=== PATIENT | male | born 1960 | race Caucasian/White ===

== ENCOUNTER 2024-03-28 11:06 | Inpatient (IN) | payer MEDICARE, SELFPAY ==
--- NOTE | 2024-03-16 08:51 | CM ---
Addendum entered by Shante Foreman 03/21/24 08:48:
Spoke again with patient. He now states his friend, Roseline, will stay with him one night.
Addendum entered by Shante Foreman 03/18/24 11:13:
Spoke again with patient. He now states that his friend, Isabella, will stay with him after surgery.
Original Note:
Patient is scheduled for an elective R THR on 03/28/24. Spoke with patient prior to surgery via telephone. Patient had a L THR and B TKR (both in 2012) at . Reintroduced role of Orthopedic Navigator. Patient reports that he lives alone in a one
story home. There are 13 steps to enter. He currently functions independently and uses lofstran crutches. He also has a rolling walker, cane, hip kit, raised toilet seat and firm cushion. He has never had VN services. PCP is Jermaine Whalen.
Discussed orthopedic program and post surgical plans. Reviewed anticipated length of stay and that goal is for him to return home at discharge. Also reviewed outpatient PT. Patient is in agreement with tentative plan and will go directly to
outpatient PT at [facility]. He states that he will have support from his friend/neighbors but no one will stay with him.
Patient will complete online education.
Plan: Orthopedic Navigator will remain available to assist with the care of patient and will reassess discharge needs after surgery.
[2024-03-22 06:45] VITALS: BMI 37.6
[2024-03-22 10:01] LABS: Hematocrit 41.3 % (39.0-52.0); Hemoglobin 14.3 g/dL (13.0-18.0); Mean Corp Hgb Conc. 34.6 g/dL (33.0-37.0); Mean Corpuscular Hgb 29.8 pg (27.0-31.0); Mean Platelet Volume 9.7 fL (7.4-10.4); Platelet Count 294 10^3/uL (130-400); Red Cell Dist. Width 12.7 % (11.5-14.5); White Blood Cell Count 6.4 10^3/uL (4.8-10.8)
[2024-03-22 10:21] LABS: ALT (SGPT) 19 U/L (0-50); AST (SGOT) 23 U/L (17-59); Albumin 4.8 g/dl (3.5-5.0); Alkaline Phosphatase 64 U/L (38-126); Blood Urea Nitrogen 16 mg/dl (9-20); Calcium 9.8 mg/dl (8.4-10.2); Carbon Dioxide 28 mmol/L (22-30); Chloride 100 mmol/L (98-107); Estimated Creatinine Clearance 109 ml/min; Glucose 90 mg/dl (70-99); Potassium 3.7 mmol/L (3.5-5.1); Sodium 140 mmol/L (135-145); Total Protein 7.4 g/dl (6.3-8.2); eGFR > 60.00
[2024-03-22 11:54] LABS: Glycohemoglobin (HgbA1c) 5.5 % (4.0-5.6)
[2024-03-22 14:39] VITALS: BMI 37.6
[2024-03-28] VITALS (9 sets, daily range): BP systolic 103–167; BP diastolic 59–89; BMI 37.6
[2024-03-28] MEDS: NORMOSOL-R 1000 IV ×2 (12:18→17:31)
[2024-03-28] MEDS: TYLENOL 650 MG PO ×2 (13:19→20:20)
[2024-03-28] MEDS: CELEBREX 200 MG PO (13:19)
--- NOTE | 2024-03-28 14:37 | W.PN.UPDATE ---
Update Note
Progress Note Update
R hip OA s/p R MIKE w/ Dr Martínez 03/28/24
- s/p L MIKE, 03/2013, and b/l TKA, 05/2013, by Dr. Sher Martínez
DVT prophylaxis - ASA, b/l venous foot pumps
HTN - + parameters - monitor BP
Non-obstructive coronary artery disease per cardiac cath 06/2023; on medical therapy
Right bundle branch block
Atrial fibrillation, status post pulmonary vein isolation 05/2018
- Monitor on tele
- Continue Metoprolol
- ASA increased to 325 mg daily x4 weeks post-op for blood clot prevention
Chronic diastolic heart failure, preserved ejection fraction - reduce hourly IVF to avoid fluid overload
- HCTZ resumed but w/ BP parameters to avoid post-surgical hypotension
TORSTEN, compliant with CPAP (setting 14) - monitor O2
- IS
- Resume CPAP HS
Lumbar degenerative disc disease with radiculopathy - consider Gabapentin or Lyrica
BPH with urinary frequency - monitor voids
- Consider Flomax prn
Mild mitral regurgitation
Mild tricuspid regurgitation
Venous insufficiency
Nephrolithiasis
Fatty liver disease
Vertigo
Urge incontinence
Hypogonadism, on weekly Testosterone.
Basal cell carcinoma, status post excision
Remote Lyme's disease
Obesity, BMI of 37.6
History of tobacco abuse
--- NOTE | 2024-03-28 17:58 | PTCARENOTE ---
Patient admitted from [facility] post right total hip replacement.The patient denies any pain.Neurovascular assessment is within normal limits and ongoing.The Aquacell dressing is intact with no drainage.Vital signs are stable.The patient is in his bed
with the call watson in reach.
[2024-03-28] MEDS: ORETIC PO (19:33)
[2024-03-28] MEDS: ASPIRIN 325 MG PO (20:17)
[2024-03-28] MEDS: BACTROBAN 2% OINTMENT 1 APPLIC NASAL (20:17)
[2024-03-28] MEDS: ANCEF 5 IV (22:27)
[2024-03-29] MEDS: TORADOL 10 MG IV (01:40)
[2024-03-29] MEDS: TYLENOL 650 MG PO ×3 (01:44→08:21)
[2024-03-29] MEDS: DILAUDID 0.5 MG IV ×2 (02:16→05:15)
[2024-03-29 03:10] VITALS: BP 119/74
[2024-03-29] MEDS: ANCEF 5 IV (05:14)
[2024-03-29 07:50] VITALS: BP 141/71
[2024-03-29] MEDS: TOPROL XL 50 MG PO (08:21)
[2024-03-29] MEDS: CELEBREX 200 MG PO (08:22)
[2024-03-29] MEDS: ASPIRIN 325 MG PO (08:22)
[2024-03-29] MEDS: ORETIC 25 MG PO (08:22)
[2024-03-29] MEDS: ROXICODONE 10 MG PO (08:25)
[2024-03-29] MEDS: BACTROBAN 2% OINTMENT NASAL (08:36)
--- NOTE | 2024-03-29 08:36 | W.PN.ORTHO ---
Today's Communication / Plan
-
Await PT and OT recs.
D/c later today if remaining clinically stable.
Assessment
.
Distal Motor Intact: Yes
Dressing:
Quarter sized incisional bleeding towards superior part of dressing. Dressing otherwise C/D/I.
Assessment:
R hip OA s/p R MIKE w/ Dr Martínez 03/28/24
- s/p L MIKE, 03/2013, and b/l TKA, 05/2013, by Dr. Sher Martínez
DVT prophylaxis - ASA, b/l venous foot pumps
HTN - + parameters - BPs stable
Non-obstructive coronary artery disease per cardiac cath 06/2023; on medical therapy
Right bundle branch block
Atrial fibrillation, status post pulmonary vein isolation 05/2018
- Maintaining NSR on tele
- Continue Metoprolol
- ASA increased to 325 mg daily x4 weeks post-op for blood clot prevention
Chronic diastolic heart failure, preserved ejection fraction - reduced hourly IVF to avoid fluid overload
- HCTZ resumed but w/ BP parameters to avoid post-surgical hypotension
TORSTEN, compliant with CPAP (setting 14) - O2 stable on RA
- IS
- Resumed CPAP HS
Lumbar degenerative disc disease with radiculopathy - consider Gabapentin or Lyrica
BPH with urinary frequency - voiding appropriately by POD 1
- Flomax prn not indicated
Mild mitral regurgitation
Mild tricuspid regurgitation
Venous insufficiency
Nephrolithiasis
Fatty liver disease
Vertigo
Urge incontinence
Hypogonadism, on weekly Testosterone.
Basal cell carcinoma, status post excision
Remote Lyme's disease
Obesity, BMI of 37.6
History of tobacco abuse
Would benefit from Cefadroxil upon d/c
Plan
.
Surgery / Date: R MIKE w/ Dr Martínez 03/28/24
DVT Prophylaxis: Aspirin
Activity:
Out of bed.
PT/OT
Discharge Plan: Home w/ Outpatient PT
Subjective
.
.:
Patient resting comfortably in his chair.
R hip pain minimal w/ pain meds overnight.
Denies any new significant complaints.
Eager for potential d/c today.
Vital Signs and Labs
.
Vital Signs and Labs:
Lab Results
03/22/24 06:41
03/22/24 06:41
Temp Pulse Resp BP Pulse Ox
98.1 F 105 20 141/71 98
03/29/24 07:50 03/29/24 08:22 03/29/24 07:50 03/29/24 08:22 03/29/24 08:17
Non-invasive Hgb result: 14.7
Physical Exam
-
HEENT: No pallor, cyanosis, or jaundice. Throat clear.
NECK: Supple. No JVD.
RESPIRATORY: Lungs clear to auscultation.
CVS: S1, S2 normal. RRR.�
ABDOMEN: Soft, non-tender. No distension. Obese.
EXTREMITIES: Strength equal, no calf pain with palpation/dorsiflexion. Calves soft.
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
--- NOTE | 2024-03-29 08:55 | W.DS.TRANS ---
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
-
Discharge Instructions:
Discharge Diagnosis/Procedures R hip OA s/p R MIKE w/ Dr Martínez 03/28/24
Diet Regular
Activity As tolerated,With Walker
Driving Restrictions Not until seen by your Dr
Bathing Restrictions OK to Shower
Other Services PT
Wound Care Dressing to be removed 1 week post-surgery.
[place] to be removed at 2 week follow-up with
surgeon's office.
Specialty Instructions Weigh Daily
Instructions:
Stand-Alone Forms: Total Hip/Knee Replacement D/C
Changes to Home Medications: Yes
Discharge Medications:
DC Medications w/original date entered in [facility]
metoprolol succinate 50 mg tablet,extended release 24 hr 50 mg PO DAILY 05/13/18
Artichoke 1 dose PO PRN PRN supplement 03/16/24
Beef Liver Organ 1 dose PO HS 03/16/24
Benfatiamine 1 dose PO PRN PRN supplement 03/16/24
Black Currant Oil 1 dose PO PRN PRN supplement 03/16/24
Cayenne Pepper 1 dose PO PRN PRN supplement 03/16/24
[place] Cinnamon 1 dose PO PRN PRN supplement 03/16/24
Gymnema [place] 1 dose PO PRN PRN supplement 03/16/24
[place] Ginseng 1 dose PO PRN PRN supplement 03/16/24
L-Tryptophan 500 mg PO DAILY 03/16/24
[place] Main Mushroom 1 dose PO PRN PRN supplement 03/16/24
[place] 1 dose PO PRN PRN supplement 03/16/24
[place]ettle [place] 1 dose PO PRN PRN supplement 03/16/24
Nitric Oxide Flow 1 dose PO PRN PRN supplement 03/16/24
Probiotic 1 dose PO HS 03/16/24
Tart [place] Extract 1 dose PO PRN PRN supplement 03/16/24
Vitamin C 1 dose PO PRN PRN supplement 03/16/24
Vitamin D3 1 dose PO PRN PRN supplement 03/16/24
White Kidney [place] 1 dose PO PRN PRN supplement 03/16/24
apple cider vinegar 1 dose PO PRN PRN supplement 03/16/24
berberine chloride 500 mg capsule 500 mg PO PRN PRN supplement 03/16/24
jksqhom-vrswplacm-yykw 1 tab PO PRN PRN supplement 03/16/24
colostrum, bovine 1 dose PO HS 03/16/24
cyanocobalamin (vitamin B-12) 1 dose PO PRN PRN supplement 03/16/24
dandelion root 1 dose PO PRN PRN supplement 03/16/24
garlic oil 1 dose PO PRN PRN supplement 03/16/24
daylin (Zingiber officinalis) 1 dose PO PRN PRN supplement 03/16/24
grape seed extract 1 dose PO PRN PRN supplement 03/16/24
green tea extract 1 dose PO PRN PRN supplement 03/16/24
lutein 1 dose PO PRN PRN supplement 03/16/24
magnesium 1 dose PO DAILY 03/16/24
milk thistle 1 dose PO PRN PRN supplement 03/16/24
turmeric 400 mg capsule 400 mg PO PRN PRN supplement 03/16/24
vitamin A 1 dose PO PRN PRN supplement 03/16/24
vitamin B6-vitamin E-magnesium 1 dose PO PRN PRN supplement 03/16/24
zinc 1 dose PO DAILY 03/16/24
mupirocin 2 % topical ointment 1 applic intranasal BID #1 tube 03/22/24
testosterone cypionate 200 mg/mL intramuscular oil 200 mg IM TU 03/22/24
acetaminophen 650 mg tablet,extended release 1,300 mg (2 x 650 mg) PO Q8H #60 tabs 03/29/24
aspirin 325 mg tablet 325 mg PO DAILY #30 tabs 03/29/24
cefadroxil 500 mg capsule 500 mg PO BID #14 caps 03/29/24
celecoxib 200 mg capsule 200 mg PO DAILY #30 caps 03/29/24
cyclobenzaprine 5 mg tablet 10 mg (2 x 5 mg) PO HS PRN muscle spasms/insomnia #0 tabs 03/29/24
docusate sodium 100 mg capsule 100 mg PO BID #30 caps 03/29/24
famotidine 20 mg tablet 20 mg PO HS #30 tabs 03/29/24
hydrochlorothiazide 25 mg tablet 25 mg PO DAILY #0 tabs 03/29/24
ondansetron HCl 4 mg tablet 4 mg PO Q6H PRN nausea and vomiting #30 tabs 03/29/24
oxycodone 5 mg tablet 5 - 10 mg (1 - 2 x 5 mg) PO Q6H PRN moderate-severe pain #30 tabs 03/29/24
sennosides 8.6 mg tablet (Senna Laxative) 17.2 mg (2 x 8.6 mg) PO BID #30 tabs 03/29/24
Home Medication Changes
acetaminophen 650 mg tablet,extended release 1,300 mg (2 x 650 mg) PO Q8H #60 tabs 03/29/24
aspirin 325 mg tablet 325 mg PO DAILY #30 tabs 03/29/24
cefadroxil 500 mg capsule 500 mg PO BID #14 caps 03/29/24
celecoxib 200 mg capsule 200 mg PO DAILY #30 caps 03/29/24
docusate sodium 100 mg capsule 100 mg PO BID #30 caps 03/29/24
famotidine 20 mg tablet 20 mg PO HS #30 tabs 03/29/24
ondansetron HCl 4 mg tablet 4 mg PO Q6H PRN nausea and vomiting #30 tabs 03/29/24
oxycodone 5 mg tablet 5 - 10 mg (1 - 2 x 5 mg) PO Q6H PRN moderate-severe pain #30 tabs 03/29/24
sennosides 8.6 mg tablet (Senna Laxative) 17.2 mg (2 x 8.6 mg) PO BID #30 tabs 03/29/24
Pending Results: No
--- NOTE | 2024-03-29 08:56 | CM ---
Reviewed chart and held rounds with PT, OT and nursing. Patient admitted as planned for elective R THR. Met with patient at bedside. Confirmed information previously obtained for assessment. Also discussed discharge plans. The plan is for patient to
return home at discharge. He will have support from friends when he goes home. He states that someone will stay with him tonight. Patient will go directly to outpatient PT and will go to [place]. He has an appointment scheduled for Thursday, 03/30.
Patient is very angry because he brought his ortho folder to the hospital and it was lost. Navigator looked for it in same day and PACU but did not locate it. Patient updated and asked if he would like me to double check his bag; patient declined.
Patient has all needed DME.
He will use [facility] pharmacy for discharge prescriptions.
[2024-03-29 09:59] VITALS: BP 160/78
[2024-03-29 10:43] VITALS: BP 160/78
== END 2024-03-29 11:10 | disposition home or self-care (01) | DRG 470 ==
LOC: 2 SOUTH 11:06
PROVIDERS: ADMITTING PHYSICIAN Specialist; FAMILY PHYSICIAN Internal Medicine
PROC: 0SR904A Replacement of Right Hip Joint with Ceramic on Polyethylene Synthetic Substitute, Uncemented, Open Approach (ICD-10-PCS; 2024-03-28)
DX: M16.11 Unilateral primary osteoarthritis, right hip (principal); I50.32 Chronic diastolic (congestive) heart failure; E66.9 Obesity, unspecified; Z68.37 Body mass index [BMI] 37.0-37.9, adult
CPT/HCPCS: 36415; 73502; 80053; 83036; 85027; 87070; 97110; 97116; 97162; 97165; 97530; C1713; C1776